=== PATIENT | female | born 1945 | race Caucasian/White ===

== ENCOUNTER → 2017-09-10 | Outpatient (CLI) | payer MEDICARE, OTHER ==
[~2017-09-10] MED LIST: FOLI0.4T56 PO; KET10 PO; LEV125 PO; LOSA25TA50 PO; METF-410 PO; METH2.5T43 PO; OMEP-125 PO; ONDA4TAB PO; OXYC-865 PO; TAMS0.4C25 PO; TRAM100T22 PO
== END ==
LOC: AMB 23:23
PROVIDERS: ATTEND Nurse Practitioner
DX: M54.5 Low back pain (principal)
CPT/HCPCS: A0425; A0427

== ENCOUNTER 2017-09-11 00:10 | Emergency (ER) | payer MEDICARE, OTHER ==
[~2017-09-11] VITALS: Ht 157.5 cm; Wt 113.4 kg
[2017-09-11] MEDS ORDERED: LOSA25TA50 PO (00:20)
[2017-09-11] MEDS ORDERED: METH2.5T43 PO (00:20)
[2017-09-11] MEDS ORDERED: OMEP-125 PO (00:20)
[2017-09-11] MEDS ORDERED: METF-410 PO (00:20)
[2017-09-11] MEDS ORDERED: FOLI0.4T56 PO (00:20)
[2017-09-11] MEDS ORDERED: LEV125 PO (00:20)
[2017-09-11] MEDS ORDERED: TRAM100T22 PO (00:20)
--- NOTE | 2017-09-11 00:22 | ER Report ---
History and Physical Time Seen By MD: 00:21 Hx. of Stated Complaint: patient having pain in her right flank this evening it started, pt denies any problems urinating or any change in urine. patient has dry heaves and nausea. HPI/ROS CHIEF COMPLAINT: Abdominal/flank pain on right. HISTORY OF PRESENT ILLNESS: This is a 72 year old female. She had sudden onset of right flank pain tonight. It does wrap around to her abdomen. Denies any problems urinating or changes in urine. No hematuria. She has had some dry heaves and nausea. Nothing really makes it worse or better. She has had no fevers or chills. No shortness of breath or cough. Normal bowels without diarrhea. Allergies: Coded Allergies: cortisone (Verified Allergy, Intermediate, lips swelling, 09/11/17) Home Meds Active Scripts Ondansetron (ZOFRAN ODT) 4 Mg Tab.rapdis, 4 MG PO Q6H Y for NAUSEA/VOMITING, # 20 TAB.DELORIS 0 Refills Prov:BEAU HOUSTON MD 09/11/17 Ketorolac Tromethamine (KETOROLAC TROMETHAMINE) 10 Mg Tab, 10 MG PO Q6H Y for PAIN, #12 TAB 0 Refills Prov:BEAU HOUSTON MD 09/11/17 Oxycodone Hcl/Acetaminophen (PERCOCET 5-325 MG TABLET) 1 Each Tablet, 1 EACH PO Q4H Y for PAIN, #12 TAB 0 Refills Prov:BEAU HOUSTON MD 09/11/17 Tamsulosin Hcl (FLOMAX) 0.4 Mg Cap.er.24h, 0.4 MG PO QDAY, #14 CAP 0 Refills Prov:BEAU HOUSTON MD 09/11/17 Reported Medications Omeprazole (OMEPRAZOLE) Unknown Strength Capsule.dr, PO QDAY, CAP 09/11/17 Metformin Hcl (METFORMIN HCL) 500 Mg Tablet, 2 TAB PO BID, TAB 09/11/17 Methotrexate Sodium (METHOTREXATE) 2.5 Mg Tablet, PO ONCE A WEEK 09/11/17 Folic Acid (FOLIC ACID) 0.4 Mg Tablet, 0.4 MG PO QDAY 09/11/17 Levothyroxine Sodium (LEVOTHYROXINE SODIUM) 0.125 Mg Tab, PO QDAY, TAB 09/11/17 Losartan Potassium (LOSARTAN POTASSIUM) 25 Mg Tablet, PO QDAY 09/11/17 Tramadol Hcl (TRAMADOL HCL) 100 Mg Tab.er.24h, PO BID, TAB 09/11/17 Reviewed Nurses Notes: Yes Constitutional Vital Sign - Last 24 Hours 09/11/17 09/11/17 09/11/17 09/11/17 00:10 00:13 00:25 00:55 Pulse 66 67 64 68 Resp 24 B/P (MAP) 139/84 Pulse Ox 94 93 95 O2 Delivery Room Air 09/11/17 09/11/17 09/11/17 09/11/17 01:10 01:25 02:30 02:45 Pulse 63 68 62 64 Pulse Ox 95 94 95 94 09/11/17 09/11/17 09/11/17 09/11/17 03:00 03:15 03:30 03:39 Pulse 65 64 73 B/P (MAP) 145/103 (117) Pulse Ox 92 95 91 Physical Exam General Appearance: The patient is alert. No acute distress. Eyes: Pupils are equal, round. No pallor, injection or icterus. ENT: Mucous membranes are moist. Respiratory: Lungs are clear to auscultation. Cardiovascular: Regular rate and rhythm. No murmurs, gallops or rubs. Gastrointestinal: Abdomen is soft, normal tenderness in the right abdomen. There is right CVA tenderness. Nondistended. No rebound or guarding. Normal active bowel sounds. Neurological: Alert and oriented x3. Skin: Warm and dry. No rashes. Musculoskeletal: No tenderness in palpation of the cervical, thoracic and lumbar spine. DIFFERENTIAL DIAGNOSIS: After history and physical exam, differential diagnosis was considered for flank pain including but not limited to musculoskeletal causes, kidney stone, pyelonephritis, shingles, and intra-abdominal causes such as diverticulitis and appendicitis. Medical Decision Making Data Points Result Diagram: 09/11/17 0057 09/11/17 0057 Laboratory Hematology Test 09/11/17 00:57 09/11/17 03:19 Red Blood Count 4.82 M/uL (4.17-5.56) Mean Corpuscular Volume 90.8 fL (80.0-96.0) Mean Corpuscular Hemoglobin 30.4 pg (26.0-33.0) Mean Corpuscular Hemoglobin Concent 33.5 g/dL (32.0-36.0) Red Cell Distribution Width 13.9 % (11.5-14.5) Mean Platelet Volume 7.1 fL (7.2-11.1) Neutrophils (%) (Auto) 84.1 % (39.4-72.5) Lymphocytes (%) (Auto) 11.5 % (17.6-49.6) Monocytes (%) (Auto) 3.8 % (4.1-12.4) Eosinophils (%) (Auto) 0.2 % (0.4-6.7) Basophils (%) (Auto) 0.4 % (0.3-1.4) Nucleated RBC Relative Count (auto) 0.0 /100WBC Neutrophils # (Auto) 12.0 K/uL (2.0-7.4) Lymphocytes # (Auto) 1.6 K/uL (1.3-3.6) Monocytes # (Auto) 0.5 K/uL (0.3-1.0) Eosinophils # (Auto) 0.0 K/uL (0.0-0.5) Basophils # (Auto) 0.1 K/uL (0.0-0.1) Nucleated RBC Absolute Count (auto) 0.01 K/uL Sodium Level 139 mmol/L (137-145) Potassium Level 4.6 mmol/L (3.5-5.0) Chloride Level 102 mmol/L (98-107) Carbon Dioxide Level 28 mmol/L (22-31) Blood Urea Nitrogen 13 mg/dl (7-18) Creatinine 0.90 mg/dl (0.52-1.04) Glomerular Filtration Rate Calc > 60.0 Random Glucose 175 mg/dl (75-110) Calcium Level 9.3 mg/dl (8.4-10.2) Total Bilirubin 0.6 mg/dl (0.2-1.3) Aspartate Amino Transf (AST/SGOT) 12 U/L (0-35) Alanine Aminotransferase (ALT/SGPT) 30 U/L (0-56) Alkaline Phosphatase 132 U/L (0-126) Total Protein 7.0 gm/dl (6.3-8.2) Albumin 3.5 g/dl (3.5-5.0) Urine Color Yellow Urine Clarity Clear Urine pH 5.0 pH (4.8-9.5) Urine Specific Brownell 1.046 Urine Protein Negative mg/dL (NEGATIVE) Urine Glucose (UA) Negative mg/dL (NEGATIVE) Urine Ketones Negative mg/dL (NEGATIVE) Urine Blood Moderate (NEGATIVE) Urine Nitrite Negative (NEGATIVE) Urine Bilirubin Negative (NEGATIVE) Urine Urobilinogen Negative mg/dL (0.2-1.9) Urine Leukocyte Esterase Negative (NEGATIVE) Urine RBC 10 /HPF (0-2/HPF) Urine WBC 1 /HPF (0-5/HPF) Urine Squamous Epithelial Cells Many /LPF (</=FEW) Urine Bacteria Few /HPF (NONE-FEW) Urine Mucus Few /HPF (NONE-FEW) Chemistry Test 09/11/17 00:57 09/11/17 03:19 White Blood Count 14.3 k/uL (4.5-11.0) Red Blood Count 4.82 M/uL (4.17-5.56) Hemoglobin 14.7 g/dL (12.0-16.0) Hematocrit 43.8 % (34.0-47.0) Mean Corpuscular Volume 90.8 fL (80.0-96.0) Mean Corpuscular Hemoglobin 30.4 pg (26.0-33.0) Mean Corpuscular Hemoglobin Concent 33.5 g/dL (32.0-36.0) Red Cell Distribution Width 13.9 % (11.5-14.5) Platelet Count 306 K/uL (150-450) Mean Platelet Volume 7.1 fL (7.2-11.1) Neutrophils (%) (Auto) 84.1 % (39.4-72.5) Lymphocytes (%) (Auto) 11.5 % (17.6-49.6) Monocytes (%) (Auto) 3.8 % (4.1-12.4) Eosinophils (%) (Auto) 0.2 % (0.4-6.7) Basophils (%) (Auto) 0.4 % (0.3-1.4) Nucleated RBC Relative Count (auto) 0.0 /100WBC Neutrophils # (Auto) 12.0 K/uL (2.0-7.4) Lymphocytes # (Auto) 1.6 K/uL (1.3-3.6) Monocytes # (Auto) 0.5 K/uL (0.3-1.0) Eosinophils # (Auto) 0.0 K/uL (0.0-0.5) Basophils # (Auto) 0.1 K/uL (0.0-0.1) Nucleated RBC Absolute Count (auto) 0.01 K/uL Glomerular Filtration Rate Calc > 60.0 Calcium Level 9.3 mg/dl (8.4-10.2) Total Bilirubin 0.6 mg/dl (0.2-1.3) Aspartate Amino Transf (AST/SGOT) 12 U/L (0-35) Alanine Aminotransferase (ALT/SGPT) 30 U/L (0-56) Alkaline Phosphatase 132 U/L (0-126) Total Protein 7.0 gm/dl (6.3-8.2) Albumin 3.5 g/dl (3.5-5.0) Urine Color Yellow Urine Clarity Clear Urine pH 5.0 pH (4.8-9.5) Urine Specific Brownell 1.046 Urine Protein Negative mg/dL (NEGATIVE) Urine Glucose (UA) Negative mg/dL (NEGATIVE) Urine Ketones Negative mg/dL (NEGATIVE) Urine Blood Moderate (NEGATIVE) Urine Nitrite Negative (NEGATIVE) Urine Bilirubin Negative (NEGATIVE) Urine Urobilinogen Negative mg/dL (0.2-1.9) Urine Leukocyte Esterase Negative (NEGATIVE) Urine RBC 10 /HPF (0-2/HPF) Urine WBC 1 /HPF (0-5/HPF) Urine Squamous Epithelial Cells Many /LPF (</=FEW) Urine Bacteria Few /HPF (NONE-FEW) Urine Mucus Few /HPF (NONE-FEW) Urinalysis Test 09/11/17 03:19 Urine Color Yellow Urine Clarity Clear Urine pH 5.0 pH (4.8-9.5) Urine Specific Brownell 1.046 Urine Protein Negative mg/dL (NEGATIVE) Urine Glucose (UA) Negative mg/dL (NEGATIVE) Urine Ketones Negative mg/dL (NEGATIVE) Urine Blood Moderate (NEGATIVE) Urine Nitrite Negative (NEGATIVE) Urine Bilirubin Negative (NEGATIVE) Urine Urobilinogen Negative mg/dL (0.2-1.9) Urine Leukocyte Esterase Negative (NEGATIVE) Urine RBC 10 /HPF (0-2/HPF) Urine WBC 1 /HPF (0-5/HPF) Urine Squamous Epithelial Cells Many /LPF (</=FEW) Urine Bacteria Few /HPF (NONE-FEW) Urine Mucus Few /HPF (NONE-FEW) EKG/Imaging Imaging CT of the abdomen and pelvis with contrast: Indication: Right flank and abdominal pain. Technique: Helical CT was performed through the abdomen and pelvis following IV contrast enhancement with 75 cc of Isovue-370. Multiplanar reconstructions are reviewed. Some delayed images were obtained approximately 2 minutes after the initial sequence. One of the following dose optimization techniques was utilized in the performance of this exam: Automated exposure control; adjustment of the mA and/ or kV according to the patient's size; or use of an iterative reconstruction technique. Specific details can be referenced in the facility's radiology CT exam operational policy. Comparison: None. Lower lung lyn: There are linear fibrotic opacities in both lower lung lyn. There is a tiny nonspecific nodule in the right middle lobe. Liver: Initial images demonstrate an irregularly-shaped area of hypoattenuation in the right lobe of liver, measuring up to 4.6 cm in size. The delayed images demonstrate partial enhancement of the lesion. This pattern suggests the presence of hepatic hemangioma. The liver parenchyma is otherwise homogeneous. There is uniform enhancement of the venous structures. There are no signs of subcapsular or perihepatic hemorrhage. Gallbladder/biliary tree: The gallbladder is normal in size and homogeneous in density. The bile ducts are normal in caliber. Pancreas: Normal in size, shape, and density. Spleen: Normal in size, shape, and density. Adrenal glands: Within normal limits. Kidneys/urinary bladder: Small simple cysts are present in both kidneys. There are no signs of solid mass. There is a 3 mm calculus in the distal right ureter , with evidence of mild obstruction. An additional calcification is present near the right ureterovesical junction, that appears to represent a phlebolith. No additional urinary tract calculi are identified. The urinary bladder appears homogeneous and unremarkable. Intestinal structures: There is a moderate-sized hiatal hernia. The appendix appears normal. There are no signs of acute appendicitis. There is moderate diverticulosis in the sigmoid colon. There are no signs of acute diverticulitis. The intestinal structures are otherwise unremarkable, as visualized. Pelvis: There appears to be a leiomyoma at the fundus of uterus, measuring approximately 5.1 cm in maximum dimension. Small cysts are present in both ovaries. There is no evidence of free fluid or inflammatory changes in the pelvis. Aorta and vascular structures: There is moderate atherosclerotic calcification in the aorta and iliac arteries. There are no signs of aortic aneurysm. Ascites or fluid collections: None seen. Skeletal structures: There is scoliosis and advanced degenerative disc disease in the lumbar spine. There is severe osteoarthritis in the right hip. No acute skeletal deformity is clearly identified. Abdominal wall: There is an uncomplicated appearing periumbilical hernia, which contains only adipose tissue, measuring up to 4.8 cm in size. Impression: There is a 3 mm calculus in the distal right ureter, with evidence of mild obstruction. There are multiple additional nonacute findings, as detailed above. Report Dictated By: Hai Ram MD at 09/11/2017 2:31 AM ED Course/Re-evaluation Clinical Indication for ER IV: Hydration, IV Access ED Course Patient had significant improvement with IV morphine and Zofran. CT scan showed evidence of 3 mm stone. Hydronephrosis present. Once the IV was taken out, the patient had recurrent symptoms. We used oral medications to treat her and sent her home with Percocet, Toradol, Zofran, and Flomax. Decision to Disposition Date: Sep 11, 2017 Decision to Disposition Time: 00:26 Depart Departure Latest Vital Signs Vital Signs Date Time Temp Pulse Resp B/P (MAP) Pulse Ox O2 Delivery O2 Flow Rate FiO2 09/11/17 03:39 145/103 (117) 09/11/17 03:30 73 91 09/11/17 00:13 24 Room Air Impression: Primary Impression: Kidney stone on right side Condition: Improved Disposition: HOME OR SELF-CARE Referrals: TOSHA ROSAS (PCP) New Scripts Ondansetron (ZOFRAN ODT) 4 Mg Tab.rapdis 4 MG PO Q6H Y for NAUSEA/VOMITING, #20 TAB.DELORIS 0 Refills Prov: BEAU HOUSTON MD 09/11/17 Ketorolac Tromethamine (KETOROLAC TROMETHAMINE) 10 Mg Tab 10 MG PO Q6H Y for PAIN, #12 TAB 0 Refills Prov: BEAU HOUSTON MD 09/11/17 Oxycodone Hcl/Acetaminophen (PERCOCET 5-325 MG TABLET) 1 Each Tablet 1 EACH PO Q4H Y for PAIN, #12 TAB 0 Refills Prov: BEAU HOUSTON MD 09/11/17 Tamsulosin Hcl (FLOMAX) 0.4 Mg Cap.er.24h 0.4 MG PO QDAY, #14 CAP 0 Refills Prov: BEAU HOUSTON MD 09/11/17 Patient Instructions: Kidney Stones (ED) Additional Instructions: Rest and increase fluid intake. For pain you can use: Percocet 5/325, take 1-2 every 4 hours as needed for pain. Toradol 10mg, one every 6 hours as needed for pain. For Nausea: Zofran 4mg, one every 4-6 hours as needed for nausea. To help the stone to pass and to help decrease swelling and pain in the urinary system after the stone passes, we recommend using Flomax 0.4mg one daily for the next couple of weeks. BEAU HOUSTON MD Sep 11, 2017 00:22
[2017-09-11] MEDS ORDERED: NS(*) 0.9% 1000 ML BAG 1,000 ML IV ONE (00:30)
[2017-09-11] MEDS ORDERED: ONDANSETRON 4 MG/2 ML VIAL IVP ONE (00:30)
[2017-09-11] MEDS ORDERED: MORPHINE 4 MG/ML SYR IVP ONE (00:30)
[2017-09-11 01:04] LABS: PLATELET COUNT, AUTOMATED 306 K/uL (150-450)
[2017-09-11] MEDS ORDERED: IOPAMIDOL 76% 75 ML INFUS BTL 75 ML ONE (01:32)
[2017-09-11] MEDS ORDERED: NS 0.9% 20 ML SDV 60 ML ONE (01:32)
--- NOTE | 2017-09-11 03:22 | RADIOLOGY IMAGING REPORT ---
FACILITY: [facility] PATIENT NAME: Elba Leal : 1945 MR: [id number] V: [id number] EXAM DATE: ORDERING PHYSICIAN: BEAU HOUSTON TECHNOLOGIST: Location: [facility] Patient: Elba Leal : 1945 Visit/Account:[id number] Date of Sevice: 09/11/2017 CT of the abdomen and pelvis with contrast: Indication: Right flank and abdominal pain. Technique: Helical CT was performed through the abdomen and pelvis following IV contrast enhancement with 75 cc of Isovue-370. Multiplanar reconstructions are reviewed. Some delayed images were obtaine d approximately 2 minutes after the initial sequence. One of the following dose optimization techniques was utilized in the performance of this exam: Autom ated exposure control; adjustment of the mA and/or kV according to the patient's size; or use of an i terative reconstruction technique. Specific details can be referenced in the facility's radiology C T exam operational policy. Comparison: None. Lower lung lyn: There are linear fibrotic opacities in both lower lung lyn. There is a tiny non specific nodule in the right middle lobe. Liver: Initial images demonstrate an irregularly-shaped area of hypoattenuation in the right lobe of liver, measuring up to 4.6 cm in size. The delayed images demonstrate partial enhancement of the lesi on. This pattern suggests the presence of hepatic hemangioma. The liver parenchyma is otherwise homogeneous. There is uniform enhancement of the venous structures. There are no signs of subcapsular or perihepatic hemorrhage. Gallbladder/biliary tree: The gallbladder is normal in size and homogeneous in density. The bile duct s are normal in caliber. Pancreas: Normal in size, shape, and density. Spleen: Normal in size, shape, and density. Adrenal glands: Within normal limits. Kidneys/urinary bladder: Small simple cysts are present in both kidneys. There are no signs of solid mass. There is a 3 mm calculus in the distal right ureter, with evidence of mild obstruction. An cassandra tional calcification is present near the right ureterovesical junction, that appears to represent a p hlebolith. No additional urinary tract calculi are identified. The urinary bladder appears homogeneous and unremarkable. Intestinal structures: There is a moderate-sized hiatal hernia. The appendix appears normal. There ar e no signs of acute appendicitis. There is moderate diverticulosis in the sigmoid colon. There are no signs of acute diverticulitis. The intestinal structures are otherwise unremarkable, as visualized. Pelvis: There appears to be a leiomyoma at the fundus of uterus, measuring approximately 5.1 cm in ma ximum dimension. Small cysts are present in both ovaries. There is no evidence of free fluid or infla mmatory changes in the pelvis. Aorta and vascular structures: There is moderate atherosclerotic calcification in the aorta and iliac arteries. There are no signs of aortic aneurysm. Ascites or fluid collections: None seen. Skeletal structures: There is scoliosis and advanced degenerative disc disease in the lumbar spine. T here is severe osteoarthritis in the right hip. No acute skeletal deformity is clearly identified. Abdominal wall: There is an uncomplicated appearing periumbilical hernia, which contains only adipose tissue, measuring up to 4.8 cm in size. Impression: There is a 3 mm calculus in the distal right ureter, with evidence of mild obstruction. There are multiple additional nonacute findings, as detailed above. Report Dictated By: Hai Ram MD at 09/11/2017 2:31 AM Report E-Signed By: Hai Ram MD at 09/11/2017 3:17 AM WSN:[id number]
[2017-09-11] MEDS ORDERED: KETOROLAC TROM 10 MG TAB TH PO ONE (03:35)
[2017-09-11] MEDS ORDERED: KETOROLAC TROM 10MG TAB PO ONE (03:35)
[2017-09-11] MEDS ORDERED: oxyCODONE/ACETAMIN 5/325MG TH 2 TAB/BOTTLE PO ONE (03:35)
[2017-09-11] MEDS ORDERED: TAMSULOSIN HCL 0.4 MG CAP PO ONE (03:35)
[2017-09-11 03:39] VITALS: BP 145/103
[2017-09-11] MEDS ORDERED: KET10 PO (03:39)
[2017-09-11] MEDS ORDERED: OXYC-865 PO (03:39)
[2017-09-11] MEDS ORDERED: ONDA4TAB PO (03:39)
[2017-09-11] MEDS ORDERED: TAMS0.4C25 PO (03:39)
[2017-09-11] MEDS ORDERED: ONDANSETRON 4 MG ODT TH SL ONE (03:45)
== END 2017-09-11 03:50 | disposition home or self-care (01) ==
LOC: ER 00:13
DX: N20.0 Calculus of kidney (principal); N13.30 Unspecified hydronephrosis; N28.1 Cyst of kidney, acquired; K44.9 Diaphragmatic hernia without obstruction or gangrene; K57.30 Diverticulosis of large intestine without perforation or abscess without bleeding
CPT/HCPCS: 74177; 81001; 85025; 87088; 96361; 96374; 96375; 99284; A9270; J2270; J2405; J7030; J7050; Q0162; Q9967; 82040; 82247; 82310; 82374; 82435; 82565; 82947; 84075; 84132; 84155; 84295; 84450; 84460; 84520; S0119